=== PATIENT | female | born 1955 | race Hispanic/Latino ===

== ENCOUNTER 2017-10-22 16:04 | Emergency (ER) | payer OTHER ==
--- NOTE | 2017-10-22 16:29 | RAD REPORT ---
EXAM DESCRIPTION: CT - Head Brain Wo Cont - 10/22/2017 4:18 pm CLINICAL HISTORY: Fall, head injury COMPARISON: None. TECHNIQUE: Axial 5 mm thick images of the head were obtained without IV contrast. All CT scans are performed using dose optimization technique as appropriate and may include automated exposure control or mA/KV adjustment according to patient size. FINDINGS: No intracranial hemorrhage, mass, edema or shift of mid-line structures. No acute infarcti on changes seen. Mild chronic ischemic changes are seen. There is also mild atrophy. Ventricles are i n proportion to volume loss. Mastoid air cells are clear. Mucosal thickening is seen scattered throughout the paranasal sinuses. S phenoid sinus air-fluid level is present. No acute bony findings. IMPRESSION: No intracranial acute finding. Mild atrophy and chronic ischemic changes are present. Mucosal thickening in the paranasal sinuses. Sphenoid sinus air-fluid level is present.
--- NOTE | 2017-10-22 16:45 | ER ---
Nurse's Notes [facility] Name: Clint Lang Age: 62 yrs Sex: Female : 1955 Arrival Date: 10/22/2017 Time: 16:09 Bed 6 Private MD: Diagnosis: Superficial injury of head Presentation: 10/22 16:10 Presenting complaint: EMS states: a assisted resident, she was standing and trying la1 to pick something and then she tripped. she hit her head but denies LOC, N/V.. Transition of care: patient was received from another setting of care (long-term care facility). Onset of symptoms was October 22, 2017. Risk Assessment: Do you want to hurt yourself or someone else? Patient reports no desire to harm self or others. Initial Sepsis Screen: Does the patient meet any 2 criteria? No. Patient's initial sepsis screen is negative. Does the patient have a suspected source of infection? No. Patient's initial sepsis screen is negative. Care prior to arrival: None. 16:10 Method Of Arrival: EMS: [facility] la1 16:10 Acuity: RISA 3 la1 Historical: - Allergies: 16:13 No Known Allergies; la1 - Home Meds: 16:38 Keppra Oral [Active]; Depakote Oral [Active]; Seroquel Oral [Active]; prmidone mg2 [Active]; Exelon Oral [Active]; Benztropine Mesylate Oral [Active]; Lipitor Oral [Active]; - PMHx: 16:13 Parkinsons; la1 16:38 Seizures; paranoid schizophrenia; Dementia; Hyperlipidemia; mg2 - PSHx: 16:38 Cholecystectomy; arm surgery; mg2 - Immunization history:: Flu vaccine status is unknown. - Social history:: Smoking status: Patient uses tobacco products, denies chronic smoking, but will smoke occasionally, Patient/guardian denies using alcohol, street drugs. - Ebola Screening: : No symptoms or risks identified at this time. Screenin:15 Abuse screen: Denies threats or abuse. Denies injuries from another. Nutritional la1 screening: No deficits noted. Tuberculosis screening: No symptoms or risk factors identified. Fall Risk Fall in past 12 months (25 points). Assessment: 16:15 Reassessment: patient sent to CT scan. la1 16:30 General: Appears in no apparent distress. comfortable, Behavior is calm, cooperative. mg2 Pain: Complains of pain in head Pain does not radiate. Pain currently is 5 out of 10 on a pain scale. Quality of pain is described as aching, Pain began suddenly, 1 hour ago. Is intermittent. Neuro: Level of Consciousness is awake, alert, obeys commands, Oriented to person, place, time, situation. Cardiovascular: Capillary refill < 3 seconds Patient's skin is warm and dry. Respiratory: Airway is patent Respiratory effort is even, unlabored, Respiratory pattern is regular, symmetrical. GI: No signs and/or symptoms were reported involving the gastrointestinal system. : No signs and/or symptoms were reported regarding the genitourinary system. EENT: Derm: Skin is intact, Skin is pink, warm \T\ dry. normal. Musculoskeletal: Reports pain in head. 17:10 Reassessment: patient is for discharge but still waiting for EMS to come and pick her mg2 up. Vital Signs: 16:14 BP 143 / 96; Pulse 85; Resp 18; Temp 98.3(A); Pulse Ox 100% on R/A; Weight 77.11 kg; la1 Height 5 ft. 6 in. (167.64 cm); Pain 5/10; 16:14 Body Mass Index 27.44 (77.11 kg, 167.64 cm) la1 Kristy Coma Score: 16:43 Eye Response: spontaneous(4). Verbal Response: oriented(5). Motor Response: obeys jr8 commands(6). Total: 15. ED Course: 16:09 Patient arrived in ED. la1 16:11 Waqas Baptiste PA is PHCP. jr8 16:11 Eligio Morocho MD is Attending Physician. jr8 16:12 Triage completed. la1 16:[address] via stretcher. nj 16:15 Arm band placed on. la1 16:18 CT Head Brain wo Cont In Process Unspecified. EDMS 16:22 Dipak Jacobsen, LEDY is Primary Nurse. la1 16:33 No provider procedures requiring assistance completed. mg2 17:12 Patient has correct armband on for positive identification. mg2 17:12 Patient did not have IV access during this emergency room visit. mg2 Administered Medications: No medications were administered Outcome: 16:45 Discharge ordered by . jr8 17:11 Discharged to mg2 17:11 Condition: stable 17:11 Discharge instructions given to patient, Instructed on discharge instructions, follow up and referral plans. 17:57 Discharged to home via wheelchair, by [facility]. mg2 17:58 Patient left the ED. mg2 Signatures: Dispatcher [employer] EDMS Waqas Baptiste PA PA jr8 Dipak Jacobsen RN RN la1 Oren Edmonds Michele, RN RN mg2
--- NOTE | 2017-10-22 16:45 | EDPHYS ---
Physician Documentation [facility] Name: Clint Lang Age: 62 yrs Sex: Female : 1955 Arrival Date: 10/22/2017 Time: 16:09 Bed 6 Private MD: ED Physician Eligio Morocho HPI: 10/22 16:43 This 62 yrs old Female presents to ER via EMS with complaints of fall. jr8 16:43 The patient or guardian reports pain. The complaints affect the top of head. Onset: The jr8 symptoms/episode began/occurred acutely, today. Associated signs and symptoms: The patient has no apparent associated signs or symptoms, Loss of consciousness: This patient did not experience any loss of consciousness. Severity of symptoms: At their worst the symptoms were mild, in the emergency department the symptoms are unchanged. The patient has not experienced similar symptoms in the past. The patient has not recently seen a physician. Stated that she bent down to pick something up and slipped causing her to fall . Historical: - Allergies: 16:13 No Known Allergies; la1 - Home Meds: 16:38 Keppra Oral [Active]; Depakote Oral [Active]; Seroquel Oral [Active]; prmidone mg2 [Active]; Exelon Oral [Active]; Benztropine Mesylate Oral [Active]; Lipitor Oral [Active]; - PMHx: 16:13 Parkinsons; la1 16:38 Seizures; paranoid schizophrenia; Dementia; Hyperlipidemia; mg2 - PSHx: 16:38 Cholecystectomy; arm surgery; mg2 - Immunization history:: Flu vaccine status is unknown. - Social history:: Smoking status: Patient uses tobacco products, denies chronic smoking, but will smoke occasionally, Patient/guardian denies using alcohol, street drugs. - Ebola Screening: : No symptoms or risks identified at this time. ROS: 16:43 Eyes: Negative for injury, pain, redness, and discharge, ENT: Negative for injury, jr8 pain, and discharge, Neck: Negative for injury, pain, and swelling, Cardiovascular: Negative for chest pain, palpitations, and edema, Respiratory: Negative for shortness of breath, cough, wheezing, and pleuritic chest pain, Abdomen/GI: Negative for abdominal pain, nausea, vomiting, diarrhea, and constipation, Back: Negative for injury and pain, MS/Extremity: Negative for injury and deformity, Skin: Negative for injury, rash, and discoloration. 16:43 Neuro: Positive for headache, Negative for altered mental status, dizziness, gait disturbance, hearing loss, loss of consciousness, numbness, seizure activity, speech changes, syncope, near syncope, tingling, tinnitus, tremor, visual changes, weakness. Exam: 16:43 Head/Face: Normocephalic, atraumatic. Eyes: Pupils equal round and reactive to light, jr8 extra-ocular motions intact. Lids and lashes normal. Conjunctiva and sclera are non-icteric and not injected. Cornea within normal limits. Periorbital areas with no swelling, redness, or edema. ENT: Nares patent. No nasal discharge, no septal abnormalities noted. Tympanic membranes are normal and external auditory canals are clear. Oropharynx with no redness, swelling, or masses, exudates, or evidence of obstruction, uvula midline. Mucous membranes moist. Neck: Trachea midline, no thyromegaly or masses palpated, and no cervical lymphadenopathy. Supple, full range of motion without nuchal rigidity, or vertebral point tenderness. No Meningismus. Cardiovascular: Regular rate and rhythm with a normal S1 and S2. No gallops, murmurs, or rubs. Normal PMI, no JVD. No pulse deficits. Respiratory: Lungs have equal breath sounds bilaterally, clear to auscultation and percussion. No rales, rhonchi or wheezes noted. No increased work of breathing, no retractions or nasal flaring. Abdomen/GI: Soft, non-tender, with normal bowel sounds. No distension or tympany. No guarding or rebound. No evidence of tenderness throughout. Back: No spinal tenderness. No costovertebral tenderness. Full range of motion. Skin: Warm, dry with normal turgor. Normal color with no rashes, no lesions, and no evidence of cellulitis. MS/ Extremity: Pulses equal, no cyanosis. Neurovascular intact. Full, normal range of motion. Neuro: Awake and alert, GCS 15, oriented to person, place, time, and situation. Cranial nerves II-XII grossly intact. Motor strength 5/5 in all extremities. Sensory grossly intact. Cerebellar exam normal. Normal gait. Vital Signs: 16:14 BP 143 / 96; Pulse 85; Resp 18; Temp 98.3(A); Pulse Ox 100% on R/A; Weight 77.11 kg; la1 Height 5 ft. 6 in. (167.64 cm); Pain 5/10; 16:14 Body Mass Index 27.44 (77.11 kg, 167.64 cm) la1 Kristy Coma Score: 16:43 Eye Response: spontaneous(4). Verbal Response: oriented(5). Motor Response: obeys jr8 commands(6). Total: 15. MDM: 16:12 Patient medically screened. jr8 16:43 Data reviewed: vital signs, nurses notes, radiologic studies, CT scan, and as a result, jr8 I will discharge patient. Data interpreted: Pulse oximetry: on room air is 100 %. Interpretation: normal. Counseling: I had a detailed discussion with the patient and/or guardian regarding: the historical points, exam findings, and any diagnostic results supporting the discharge/admit diagnosis, radiology results, the need for outpatient follow up, a family practitioner, to return to the emergency department if symptoms worsen or persist or if there are any questions or concerns that arise at home. 10/22 16:11 Order name: CT Head Brain wo Cont; Complete Time: 16:44 jr8 Administered Medications: No medications were administered Disposition: 17:59 Co-signature as Attending Physician, Eligio Morocho MD. rn Disposition: 10/22/17 16:45 Discharged to Home. Impression: Superficial injury of head. - Condition is Stable. - Discharge Instructions: Head Injury, Adult. - Medication Reconciliation Form, Thank You Letter, Antibiotic Education, Prescription Opioid Use form. - Follow up: Private Physician; When: 2 - 3 days; Reason: Recheck today's complaints, Continuance of care, Re-evaluation by your physician. - Problem is new. - Symptoms have improved. Signatures: Dispatcher [employer] EDMS Eligio Morocho MD MD rn Roszak, Josh, PA PA jr8 Dipak Jacobsen RN RN la1 Fausto Echevarria RN RN mg2 Corrections: (The following items were deleted from the chart) 17:58 16:45 10/22/2017 16:45 Discharged to Home. Impression: Superficial injury of head. mg2 Condition is Stable. Forms are Medication Reconciliation Form, Thank You Letter, Antibiotic Education, Prescription Opioid Use. Follow up: Private Physician; When: 2 - 3 days; Reason: Recheck today's complaints, Continuance of care, Re-evaluation by your physician. Problem is new. Symptoms have improved. jr8
== END 2017-10-22 17:58 | disposition home or self-care (01) ==
LOC: ER 16:04
DX: S00.90XA Unspecified superficial injury of unspecified part of head, initial encounter (principal); W01.0XXA Fall on same level from slipping, tripping and stumbling without subsequent striking against object, initial encounter; Y93.89 Activity, other specified; Y92.009 Unspecified place in unspecified non-institutional (private) residence as the place of occurrence of the external cause; G20 Parkinson's disease; F02.80 Dementia in other diseases classified elsewhere, unspecified severity, without behavioral disturbance, psychotic disturbance, mood disturbance, and anxiety; E78.5 Hyperlipidemia, unspecified; R56.9 Unspecified convulsions
CPT/HCPCS: 70450; 99284

== ENCOUNTER 2017-10-23 11:46 | Emergency (ER) | payer OTHER ==
[2017-10-23] MEDS ORDERED: NA CHLORIDE 0.9% 500 ML ONE (13:00)
[2017-10-23 13:01] LABS: Absolute Lymphocytes (CBC) 5.2 K/uL (0.7-4.9); Absolute Monocytes 0.7 K/uL (0.1-1.3); Absolute Neutrophil 1.6 K/uL (1.8-8.0); Basophils % 1.1 % (0-1.3); Eosinophils % 6.2 % (0-4.4); Hematocrit 42.5 % (36.0-45.0); Lymphocytes % 64.3 % (15.3-44.8); MCH 32.3 pg (27.0-35.0); MCV 94.8 fL (80-100); MPV 9.5 fL (7.6-11.3); Monocytes % 8.4 % (3.3-12.3); RBC Red Blood Cell Count 4.48 M/uL (3.86-4.86)
[2017-10-23 13:27] LABS: ALT/SGPT 108 U/L (12-78); AST/SGOT 78 U/L (15-37); Albumin 3.5 g/dL (3.4-5.0); Alkaline Phosphatase 93 U/L (45-117); BUN Blood Urea Nitrogen 11 mg/dL (7-18); Bicarbonate 32 mmol/L (21-32); Bilirubin Total 0.4 mg/dL (0.2-1.0); Blood Morphology Comment NOT SEEN (NOT SEEN); CKMB Creatine Kinase MB < 1.0 ng/mL (0.3-3.6); Creatine Phosphokinase 42 U/L (26-192); Glucose Level 85 mg/dL (74-106); Platelet Estimate ADEQ; Potassium 4.1 mmol/L (3.5-5.1); Protein, Total 7.9 g/dL (6.4-8.2); Sodium Level 141 mmol/L (136-145)
--- NOTE | 2017-10-23 13:59 | EKG ---
Test Date: 2017-10-23 Test Time: 12:05:42 Inspector Chief: TASIA MEASUREMENT RESULTS: Intervals: Rate: 70 [place]: 138 QRSD: 80 QT: 358 QTc: 386 [place]: P: 49 [place]: 138 QRS: 9 T: 7 INTERPRETIVE STATEMENTS: Normal sinus rhythm Nonspecific T wave abnormality Abnormal ECG No previous ECG available for comparison Electronically Signed On 10-23-17 13:58:48 CDT by Eusebio Oropeza
[2017-10-23 15:00] LABS: Urine Blood 1+ (NEG); Urine Glucose NEGATIVE (NEG); Urine Protein 1+ (NEG); Urine Specific Gravity 1.025 (1.005-1.030)
--- NOTE | 2017-10-23 15:01 | ER ---
Nurse's Notes [facility] Name: Clint Lang Age: 62 yrs Sex: Female : 1955 Arrival Date: 10/23/2017 Time: 11:52 Bed 14 Private MD: Diagnosis: Urinary tract infection, site not specified Presentation: 10/23 11:53 Presenting complaint: EMS states: called out from [facility] for em combative since this morning, pt who was seen here yesterday for fall and discharged home, pt normally A\T\Ox2 , VSS, BGL 114 per EMS, no apparent distress, dry oral mucosa noted. Transition of care: patient was not received from another setting of care. Onset of symptoms was October 23, 2017. Risk Assessment: Do you want to hurt yourself or someone else? Patient reports no desire to harm self or others. Initial Sepsis Screen: Does the patient meet any 2 criteria? No. Patient's initial sepsis screen is negative. Does the patient have a suspected source of infection? No. Patient's initial sepsis screen is negative. Care prior to arrival: None. 11:53 Method Of Arrival: EMS: [facility] em 12:04 Acuity: RISA 3 la1 Triage Assessment: 11:59 General: Appears in no apparent distress. comfortable, Behavior is cooperative. Pain: em Denies pain. Historical: - Allergies: 11:59 No Known Allergies; em - Home Meds: 11:59 Benztropine Mesylate Oral [Active]; Depakote Oral [Active]; Exelon Oral [Active]; em Keppra Oral [Active]; Lipitor Oral [Active]; prmidone [Active]; Seroquel Oral [Active]; - PMHx: 11:59 Dementia; Hyperlipidemia; Paranoid Schizophrenia; Parkinsons; Seizures; em - Immunization history:: Adult Immunizations up to date. - Social history:: Smoking status: unknown. - Ebola Screening: : Patient negative for fever greater than or equal to 101.5 degrees Fahrenheit, and additional compatible Ebola Virus Disease symptoms Patient denies exposure to infectious person Patient denies travel to an Ebola-affected area in the 21 days before illness onset No symptoms or risks identified at this time. Screenin:01 Abuse screen: no apparent signs noted. Nutritional screening: No deficits noted. em Tuberculosis screening: No symptoms or risk factors identified. Fall Risk Fall in past 12 months (25 points). Secondary diagnosis (15 points) dementia, Total Ridley Fall Scale indicates Low Risk Score (25-44 pts). Side Rails Up X 2 Placed close to Nursing Station Frequent Obs/Assesments occuring. Assessment: 11:53 General: Appears in no apparent distress. comfortable, Behavior is calm, cooperative, em drowsy. Pain: Denies pain. Neuro: Level of Consciousness is awake, obeys commands, Oriented to person, place, situation. Cardiovascular: Capillary refill < 3 seconds Patient's skin is warm and dry. Respiratory: Airway is patent Respiratory effort is even, unlabored, Respiratory pattern is regular, symmetrical. GI: Abdomen is round obese, Patient currently denies nausea, vomiting. Derm: Skin is intact, Skin is pink, warm \T\ dry. Musculoskeletal: Range of motion: intact in all extremities. 13:10 Reassessment: Patient appears in no apparent distress at this time. Patient and/or em family updated on plan of care and expected duration. Pain level reassessed. Patient is alert, oriented x 3, equal unlabored respirations, skin warm/dry/pink. Patient denies pain at this time. 14:38 Reassessment: Patient appears in no apparent distress at this time. Patient and/or em family updated on plan of care and expected duration. Pain level reassessed. Patient is alert, oriented x 3, equal unlabored respirations, skin warm/dry/pink. assisted to restroom with wheelchair, ambulated with assistance, tolerated well Patient denies pain at this time. Patient states feeling better. 15:18 Reassessment: Patient appears in no apparent distress at this time. report given to luci Cristina at [facility], pending transportation, [facility] will arrange transport. Vital Signs: 11:59 BP 98 / 70; Pulse 75; Resp 16; Temp 97.5(O); Pulse Ox 94% on R/A; Pain 0/10; em 13:17 BP 119 / 78; Pulse 66; Resp 14; Pulse Ox 96% on R/A; Pain 0/10; em 14:30 BP 126 / 74; Pulse 78; Resp 16; Pulse Ox 95% on R/A; em 15:17 BP 106 / 75; Pulse 70; Resp 15; Pulse Ox 96% on R/A; Pain 0/10; em ED Course: 11:52 Patient arrived in ED. em 11:59 Arm band placed on. em 12:01 Patient has correct armband on for positive identification. Bed in low position. Call em light in reach. Side rails up X2. 12:04 Triage completed. la1 12:04 Saul Borden PA is PHCP. [facility] 12:04 Behzad Sanchez MD is Attending Physician. [facility] 12:05 Luke Feldman LVN is Primary Nurse. em 12:12 Saul Borden PA is PHCP. [facility] 12:12 Behzad Sanchez MD is Attending Physician. m 12:30 EKG done, by administrative support technician. reviewed by Saul SAPP. at1 13:00 Initial lab(s) drawn, by ut, sent to lab. Inserted saline lock: 20 gauge in right em antecubital area, using aseptic technique. Blood collected. 15:48 No provider procedures requiring assistance completed. IV discontinued, intact, la1 bleeding controlled, No redness/swelling at site. Pressure dressing applied. Administered Medications: 12:59 Drug: NS 0.9% 500 ml Route: IV; Rate: bolus; Site: right antecubital; em 13:30 Follow up: IV Status: Completed infusion; IV Intake: 500ml em Intake: 13:30 IV: 500ml; Total: 500ml. em Outcome: 15:00 Discharge ordered by . [facility] 15:48 Discharged to home ambulatory. la1 15:48 Condition: stable 15:48 Discharge instructions given to patient, longterm, Instructed on discharge instructions, follow up and referral plans. medication usage, Demonstrated understanding of instructions, follow-up care, medications. 15:48 Patient left the ED. la1 Signatures: Saul Borden PA PA [facility] Luke Feldman, NICOLE CUFF STITCHER em Aleshia mora, clinical documentation improvement specialist EKG Tat1 Dipak Jacobsen, RN RN la1
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
[2017-10-23 15:25] LABS: Urine Bacteria 20-50 /HPF (<20); Urine Culture Reflex Order REFLEXED
== END 2017-10-23 15:48 | disposition home or self-care (01) ==
LOC: ER 11:46
DX: N39.0 Urinary tract infection, site not specified (principal); E78.5 Hyperlipidemia, unspecified; G20 Parkinson's disease; F02.80 Dementia in other diseases classified elsewhere, unspecified severity, without behavioral disturbance, psychotic disturbance, mood disturbance, and anxiety; G40.909 Epilepsy, unspecified, not intractable, without status epilepticus
CPT/HCPCS: 36415; 80053; 81003; 81015; 82550; 82553; 84484; 85025; 87077; 87086; 87088; 87186; 93005; 96360; 99284

== ENCOUNTER 2017-11-03 09:35 | Emergency (ER) | payer OTHER ==
[2017-11-03] MEDS ORDERED: DIAZEPAM 2 MG TABLET ONE (09:58)
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
== END 2017-11-03 11:26 | disposition home or self-care (01) ==
LOC: ER 09:35
DX: F41.1 Generalized anxiety disorder (principal); E78.5 Hyperlipidemia, unspecified; G20 Parkinson's disease; F02.80 Dementia in other diseases classified elsewhere, unspecified severity, without behavioral disturbance, psychotic disturbance, mood disturbance, and anxiety; G40.909 Epilepsy, unspecified, not intractable, without status epilepticus
CPT/HCPCS: 99283